=== PATIENT | female | born 2000 | race Caucasian/White ===

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

== ENCOUNTER 2021-09-05 16:54 | Observation (INO) | payer BC ==
[2021-09-05] MEDS ORDERED: Sodium Chloride 0.9% 1,000 ML ONE (17:46)
[2021-09-05] MEDS ORDERED: Ondansetron PF 4 MG/2 ML Vial ONE ×2 (17:46→18:59)
[2021-09-05] MEDS ORDERED: Pantoprazole 40 MG VIAL ONE (17:46)
[2021-09-05] MEDS ORDERED: Metoclopramide HCl 10 MG/2 ML VIAL ONE ×2 (17:46→20:27)
[2021-09-05] MEDS ORDERED: diphenhydrAMINE 50 MG/ML VIAL ONE (17:46)
[2021-09-05 17:48] LABS: #Basophils 0.1 thou/uL (0.0-0.2); #Eosinphils 0.1 thou/uL (0.0-0.7); #Lymphocytes 2.3 thou/uL (1.20-3.40); #Monocytes 0.4 thou/uL (0.11-0.59); #Neutrophils 8.9 thou/uL (1.40-6.50); %Basophils 0.9 % (0.0-1.0); %Eosinophils 0.6 % (0.0-10.0); %Lymphocytes 19.5 % (28.0-48.0); %Monocytes 3.3 % (0.0-4.0); %Neutrophils 75.7 % (31.0-61.0); Hemoglobin 15.4 g/dL (12.0-16.0); Mean Corpuscular HGB CONC 32.3 g/dL (32.0-36.0); Mean Corpuscular Hemoglobin 30.8 pg (25.0-35.0); Mean Corpuscular Volume 95.3 fL (78.0-98.0); Mean Platelet Volume 9.1 fL (7.4-10.4); Platelet Count 278 thou/uL (130-400); RBC Distribution Width 11.4 % (11.5-14.5); Red Blood Cell (RBC) Count 5.01 mill/uL (4.00-5.20); White Blood Cell (WBC) Count 11.7 thou/uL (4.8-10.8)
[2021-09-05 17:58] LABS: Band 5 % (5-11); Eosinophils 1 % (0-10); Lymphocytes 20 % (28-48); Monocytes 5 % (0-4); Platelet Morphology Comment Appears Adequate; Reactive Lymphocytes 1 % (0-10)
[2021-09-05 18:05] LABS: ALT (SGPT) 14 U/L (8-55); AST (SGOT) 20 U/L (5-34); Albumin 4.7 g/dL (3.5-5.0); Alkaline Phosphatase 74 U/L (40-100); Anion Gap 15 mmol/L (10-20); BUN (Urea Nitrogen) 11 mg/dL (7.0-18.7); Bilirubin, Total 0.6 mg/dL (0.2-1.2); Calc. Creatinine Clearance 0 mL/min (70-130); Calcium 10.2 mg/dL (7.8-10.44); Carbon Dioxide 24 mmol/L (22-29); Chloride 104 mmol/L (98-107); Globulin 3.8 g/dL (2.4-3.5); Glucose 117 mg/dL (70-105); Lipase 17 U/L (8-78); Potassium 4.2 mmol/L (3.5-5.1); Protein, Total 8.5 g/dL (6.0-8.3); Sodium 139 mmol/L (136-145)
[2021-09-05] MEDS ORDERED: Lidocaine Viscous Sol 2% 15 ml UD Cup ONE (19:59)
[2021-09-05] MEDS ORDERED: Mag-Al Plus 1200 MG/1200 MG/120 MG/30 ML UDCUP ONE (19:59)
[2021-09-05 22:23] VITALS: BMI 24.3
[2021-09-05] MEDS ORDERED: Metoclopramide HCl 10 MG/2 ML VIAL IVP PRN (22:42)
[2021-09-05] MEDS ORDERED: Ondansetron ODT 4 MG TAB SL PRN (22:45)
[2021-09-05] MEDS ORDERED: Ondansetron PF 4 MG/2 ML Vial IVP PRN (22:45)
[2021-09-05] MEDS: Sodium Chloride 0.9% 1,000 ML IV SCH (23:47)
[2021-09-06 03:55] LABS: Pregnancy Test - Urine (BHCG) Negative (Negative); Pregu Control Background? CLEAR/WHITE (CLR/WHITE); Pregu Control Bar Appear? YES (CONTROL BAR); Specific Gravity 1.021 (1.002-1.036)
[2021-09-06] MEDS: Sodium Chloride 0.9% 1,000 ML IV SCH (06:08)
[2021-09-06 06:40] LABS: #Basophils 0.1 thou/uL (0.0-0.2); #Lymphocytes 1.1 thou/uL (1.20-3.40); #Monocytes 0.4 thou/uL (0.11-0.59); #Neutrophils 10.1 thou/uL (1.40-6.50); %Basophils 0.4 % (0.0-1.0); %Lymphocytes 9.3 % (28.0-48.0); %Monocytes 3.6 % (0.0-4.0); %Neutrophils 86.7 % (31.0-61.0); Hemoglobin 12.7 g/dL (12.0-16.0); Mean Corpuscular HGB CONC 32.5 g/dL (32.0-36.0); Mean Corpuscular Hemoglobin 30.7 pg (25.0-35.0); Mean Corpuscular Volume 94.5 fL (78.0-98.0); Mean Platelet Volume 9.1 fL (7.4-10.4); Platelet Count 238 thou/uL (130-400); Red Blood Cell (RBC) Count 4.13 mill/uL (4.00-5.20); White Blood Cell (WBC) Count 11.6 thou/uL (4.8-10.8)
[2021-09-06 06:52] LABS: Anion Gap 12 mmol/L (10-20); BUN (Urea Nitrogen) 6 mg/dL (7.0-18.7); Calc. Creatinine Clearance 145 mL/min (70-130); Calcium 8.7 mg/dL (7.8-10.44); Carbon Dioxide 21 mmol/L (22-29); Chloride 108 mmol/L (98-107); Glucose 113 mg/dL (70-105); Potassium 3.8 mmol/L (3.5-5.1); Sodium 137 mmol/L (136-145)
[2021-09-06 07:08] LABS: SARS-CoV-2 NAA Rapid Test Not Detected (NotDetected)
[2021-09-06] MEDS ORDERED: Acetaminophen 325 MG TAB PO PRN (07:20)
[2021-09-06 07:41] VITALS: BP 108/61; TEMP 98.5
[2021-09-08] MEDS ORDERED: FLU VACC QS2021-22(6MOS UP)/PF 60 MCG/0.5 ML SYRINGE IM ONE (09:00)
== END 2021-09-06 11:20 | disposition home or self-care (01) ==
LOC: NAV ERS 16:54 → NAV ACUTE 22:07
PROVIDERS: ADMIT Family Medicine; ATTEND Family Medicine
DX: R11.2 Nausea with vomiting, unspecified (principal); E86.0 Dehydration; A74.9 Chlamydial infection, unspecified; R10.9 Unspecified abdominal pain; Z20.822 Contact with and (suspected) exposure to COVID-19
CPT/HCPCS: 36415; 80048; 80053; 81025; 83690; 85025; 96374; 96375; C9113; G0378; J1200; J2405; J2765; J7050; U0002

== ENCOUNTER 2022-02-06 22:16 | Emergency (ER) | payer BC | END 2022-02-06 22:48 | disposition home or self-care (01) | LOC: NAV ERS 22:16 | DX: R11.10 Vomiting, unspecified (principal) | CPT/HCPCS: 99283 ==

== ENCOUNTER 2022-05-26 10:48 | Emergency (ER) | payer BC | END 2022-05-26 11:25 | disposition home or self-care (01) | LOC: NAV ERS 10:48 | DX: S23.3XXA Sprain of ligaments of thoracic spine, initial encounter (principal); X58.XXXA Exposure to other specified factors, initial encounter | CPT/HCPCS: 99283 ==

== ENCOUNTER 2022-12-29 23:03 | Emergency (ER) | payer BC ==
[2022-12-29] MEDS ORDERED: Ondansetron ODT 4 MG TAB ONE (23:45)
[2022-12-29] MEDS ORDERED: Ketorolac Tromethamine 30 MG/ML VIAL ONE (23:45)
== END 2022-12-30 00:08 | disposition home or self-care (01) ==
LOC: NAV ERS 23:03
DX: R51.9 Headache, unspecified (principal); R11.0 Nausea; Y04.8XXA Assault by other bodily force, initial encounter
CPT/HCPCS: 96372; 99283; J1885; Q0162